=== PATIENT | female | born 1955 | race American Indian/Alaskan Native ===

== ENCOUNTER 2017-02-27 09:00 | Outpatient (CLI) | payer OTHER ==
--- NOTE | 2017-02-27 10:01 | Mammography Report ---
BILATERAL MAMMOGRAM: FINDINGS: There are scattered fibroglandular densities (approximately 25%-50% glandular). No mass, distortion, suspicious calcification, or skin change is seen. No significant change compared to prior exams dating back to 2015. CAD was utilized. IMPRESSION: Negative mammogram. There is no mammographic evidence of malignancy. RECOMMENDATION: Follow-up per ACS guidelines. BI-RADS CATEGORY: 1 = Negative ACR BI-RADS MAMMOGRAPHIC CODES: 0 = Needs additional imaging evaluation; 1 = Negative; 2 = Benign; 3 = Probably benign; 4 = Suspicious; 5 = Malignant; 6 = Known biopsy-proven malignancy COMMENT: 1. Dense breast tissue, i.e., adenosis, fibrocystic changes, etc., may obscure an underlying neoplasm. 2. Approximately 10% of cancers are not detected with mammography. 3. A negative mammography report should not delay biopsy if a clinically suspicious mass is present. COMMENT: Patient follow-up letters are generated in [employer].
== END 2017-02-27 09:01 | disposition home or self-care (01) ==
LOC: SPVWC 09:00
PROVIDERS: ATTEND Internal Medicine
DX: Z12.31 Encounter for screening mammogram for malignant neoplasm of breast (principal)
CPT/HCPCS: 77067; G0202

== ENCOUNTER 2018-06-04 10:22 | Outpatient (CLI) | payer OTHER ==
--- NOTE | 2018-06-05 13:01 | Mammography Report ---
BILATERAL DIGITAL SCREENING MAMMOGRAM with CAD: 06/04/18 10:22:00 CLINICAL: Routine screening. COMPARISON:02/18/16 and 02/27/17 FINDINGS: There are scattered areas of fibroglandular density.A stable central left parenchymal asymmetry. No mass, architectural distortion or suspicious calcifications. IMPRESSION: No mammographic evidence of malignancy. BI-RADS CATEGORY: 2 -- Benign RECOMMENDATION: Routine mammographic screening in one year. COMMENT: Patient follow-up letters are generated by our [employer] application.
== END 2018-06-04 10:23 | disposition home or self-care (01) ==
LOC: SPVWC 10:22
PROVIDERS: ATTEND Internal Medicine
DX: Z12.31 Encounter for screening mammogram for malignant neoplasm of breast (principal)
CPT/HCPCS: 77067

== ENCOUNTER 2018-11-09 06:34 | Day surgery (SDC) | payer OTHER ==
[2018-11-09] MEDS ORDERED: XYLOCAINE 2% INFILTRATI ONE (07:19)
[2018-11-09] MEDS ORDERED: DIPRIVAN 10 MG/ML IV ONE ×3 (07:20)
[2018-11-09] MEDS ORDERED: WATER FOR IRRIG STERILE IR ONE (07:52)
[2018-11-09] MEDS ORDERED: WATER FOR IRRIG STERILE ONE (07:53)
[2018-11-09] MEDS ORDERED: NACL 0.9% 1000 ML 1,000 ML IV SCH (08:00)
--- NOTE | 2018-11-09 08:15 | Anesthesia Consultation ---
Anesthesia Consult and Med Hx Date of service: 11/09/18 - Airway Anesthetic Teeth Evaluation: Good ROM Head & Neck: Adequate Mental/Hyoid Distance: Adequate Mallampati Class: Class I Intubation Access Assessment: Probably Good - Pulmonary Exam CTA: Yes - Cardiac Exam Cardiac Exam: RRR - Pre-Operative Health Status ASA Pre-Surgery Classification: ASA2 Proposed Anesthetic Plan: MAC - Pulmonary Hx Smoking: Yes (40 years ago) Hx Asthma: No Hx Respiratory Symptoms: No Hx Sleep Apnea: No ([place]) - Cardiovascular System Hx Hypertension: No Hx Heart Attack/AMI: No Hx Cardia Arrhythmia: No - Central Nervous System Hx Neuromuscular Disorder: No Hx Psychiatric Problems: No - Gastrointestinal Hx Gastroesophageal Reflux Disease: No - Endocrine Hx Renal Disease: No Hx Liver Disease: No Hx Insulin Dependent Diabetes: No Hx Non-Insulin Dependent Diabetes: No - Hematic Hx Sickle Cell Disease: No - Other Systems Hx Alcohol Use: No Hx Obesity: Yes - Additional Comments Anesthesia Medical History Comments: No GAC, No FHAC
--- NOTE | 2018-11-09 08:16 | Anesthesia Day of Surgery ---
Anesthesia Day of Surgery - Day of Surgery Patient Examined: Yes Patient H&P Reviewed: Yes Patient is NPO: Yes Beta Blockers: No (n/a) Cardiac Clearance: No (n/a) Pulmonary Clearance: No (n/a)
--- NOTE | 2018-11-09 09:00 | Procedure Note ---
Date of procedure: 11/09/18 Pre-op diagnosis: H/O Colon Polyp/H/O Partial colon resection (proximal colon) Post-op diagnosis: other (Solitary,Small Proximal colon Polyp (removed by cold biopsy)/ Moderate,Left Colon diverticular disease/Mild to Moderate, Internal Hemorrhoid) Procedure: Colonoscopy with Cold Biopsy Anesthesia: MOSHE Surgeon: KEN GUAJARDO Estimated blood loss: minimal Pathology: list Specimen disposition: to lab Condition: stable Disposition: same day (Encourage fiber intake and avoid aspirin and NSAID for 5 days. Follow up in 1 to 2 weeks ([phone]) and resume home medication.)
[2018-11-09 09:39] VITALS: BP 119/81
--- NOTE | 2018-11-09 10:55 | Operative Report ---
PROCEDURE: Colonoscopy with biopsy. INDICATIONS: This is a 63-year-old -[place] female with a prior history of colon polyps. She has had partial colon resection involving the proximal colon, but did not require any chemotherapy or radiation therapy. At this time, she is in otherwise good health and is not on any medication other than for multivitamins and Prempro. Colonoscopy was done to make sure there was not any recurrence of any polyps. DESCRIPTION OF PROCEDURE: Procedure was done after getting informed consent with MAC anesthesia. Initial rectal exam was unremarkable. Instrument was passed through the rectum onto the anastomotic site of the proximal colon. Visualization was fair. There was a small polyp noted in the right colon that was removed by cold biopsy. No other significant pathology was noted in the proximal and the transverse colon. Left colon showed moderate diverticular disease and the rectum showed mild to moderate internal hemorrhoids in the retroverted view. There was minimal bleeding from the biopsy sites. No complications associated with the procedure. ASSESSMENT: History of colon polyp with partial colon resection involving the proximal colon, solitary small right colon polyp removed by cold biopsy. Moderate left colon diverticular disease, mild to moderate internal hemorrhoids. Again, there was minimal bleeding from the biopsy sites. No complications associated with the procedure. The patient will be asked to resume previous medication and to avoid aspirin and aspirin-related products for the next 5 days. Follow up in the office in 1-2 weeks' time. Vivian UMAÑA was in the room throughout the entirety of the procedure. JOB# [id number] SUKH/JAYLON
== END 2018-11-09 06:35 | disposition home or self-care (01) ==
LOC: GIO 06:34
DX: Z12.11 Encounter for screening for malignant neoplasm of colon (principal); K63.5 Polyp of colon; K57.30 Diverticulosis of large intestine without perforation or abscess without bleeding; K64.8 Other hemorrhoids; E66.9 Obesity, unspecified; Z68.33 Body mass index [BMI] 33.0-33.9, adult; Z79.899 Other long term (current) drug therapy; Z87.891 Personal history of nicotine dependence; Z98.51 Tubal ligation status; Z98.890 Other specified postprocedural states; Z88.8 Allergy status to other drugs, medicaments and biological substances
CPT/HCPCS: 45380; 88305; J2704; J7030

== ENCOUNTER 2019-07-09 08:29 | Outpatient (CLI) | payer OTHER ==
--- NOTE | 2019-07-09 16:40 | Mammography Report ---
DIGITAL SCREENING MAMMOGRAM WITH CAD, 07/09/2019 INDICATION: Routine screening mammography. TECHNIQUE: Digital bilateral 2D mammography was obtained in the craniocaudal and mediolateral obliq ue projections. This examination was interpreted with the benefit of Computer-Aided Detection analysi s. COMPARISON: 06/04/2018 and 02/18/2016 FINDINGS: Breast Density: There is no evidence of dominant mass, suspicious calcifications or architectural distortion in eithe r breast. IMPRESSION: No mammographic evidence of malignancy. Follow up recommendation: Routine yearly BI-RADS Category 2: Benign. A "normal" or negative report should not discourage follow up or biopsy of a clinically significant f inding. A written summary of these findings will be mailed to the patient. The patient will be entered into a mammography reporting system which will generate a reminder letter for the patient's next appointmen t at the appropriate interval. The [employer] recommends yearly mammograms starting at age 40 and continuing as l denis as a woman is in good health. Breast MRI is recommended for women with an approximate 20-25% or greater lifetime risk of breast cancer, including women with a strong family history of breast or ova yuan cancer or who have been treated for Hodgkin's disease. Signer Name: Savage Simon MD Signed: 07/09/2019 4:36 PM Workstation Name: [id number]
== END 2019-07-09 08:30 | disposition home or self-care (01) ==
LOC: SPVWC 08:29
PROVIDERS: ATTEND Internal Medicine
DX: Z12.31 Encounter for screening mammogram for malignant neoplasm of breast (principal); Z88.8 Allergy status to other drugs, medicaments and biological substances
CPT/HCPCS: 77067